=== PATIENT | male | born 1950 | race Caucasian/White ===

== ENCOUNTER 2017-08-27 07:56 | Emergency (ER) | payer OTHER ==
--- NOTE | 2017-08-27 08:11 | CPEKG ---
Heart Rate: 65 RR Interval: 923 P-R Interval: 168 QRSD Interval: 96 QT Interval: 468 QTC Interval: 487 P [place]: 61 QRS [place]: 8 T Wave [place]: 255 EKG Severity - ABNORMAL ECG - EKG Impression: SINUS RHYTHM EKG Impression: MULTIPLE ATRIAL PREMATURE COMPLEXES EKG Impression: BORDERLINE PROLONGED QT INTERVAL Electronically Signed By: Santi Brewer 29-Aug-2017 12:46:41
--- NOTE | 2017-08-27 08:16 | EDPHY ---
HPI/HX/ROS/PE/MDM Narrative: CHIEF COMPLAINT: Chest pain HPI: This patient is a 67 y/o male complaining of chest pain. He woke with discomfort which he describes as "chest pain" that he feels deep inside his left shoulder blade from the back. His discomfort is persistent and dull and has not changed since onset. He denies any sharp pains. No radiation. The patient has had similar pains over the last several months. These usually resolve within 5 minutes with deep breathing. Today, the pain has not resolved so he presents fo revaluation. He believes his similar pains have been of cardiac etiology, but he has not followed up with a reporting developer regarding these symptoms. A stress test "decades ago" was negative. The patient denies any recent unusual activities. He exercised on Friday, three days ago, as usual and had no chest pain or shortness of breath during his activities. The patient reports occasional swelling in his legs. He denies history of hypertension, diabetes, or hyperlipidemia. He is a nonsmoker. No family history of cardiac disease. No fever, shortness of breath, or other associated symptoms. REVIEW OF SYSTEMS: Aside from elements discussed in the HPI, a comprehensive 10-point review of systems was reviewed and is negative. 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 No HTN or connective tissue disorder. 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 Lives in [place]. PHYSICAL EXAM: General:Patient is alert, in no acute distress. ENT:Eyes are normal to inspection. ENT inspection normal. Neck: Normal inspection. Full range of motion. Respiratory:No respiratory distress. Breath sounds normal bilaterally. Cardiovascular: Regular rate and rhythm. Strong peripheral pulses. Normal cap refill. Abdomen:The abdomen is nontender to palpation. There are no peritoneal signs. There are normal bowel sounds. Back: Normal to inspection. No tenderness to palpation. Skin: Normal color. No rash. Warm and dry. Extremities: Trace pedal edema bilaterally. Full range of motion. Neuro: Oriented x3. Normal motor function. Normal sensory function. ED Course: 67 y/o male presents with left upper back pain which he describes as chest pain. Plan to administer 325mg PO Aspirin. Plan for EKG, chest x-ray, labs including CBC, chemistries, troponin, D-dimer. EKG was ordered and interpreted by myself. Please see [facility] system for official reading. Sinus rhythm, multiple PACs. Chest x-ray negative for pneumonia. Evidence of mild airways disease. No other acute processes noted. Laboratory studies unremarkable. Troponin and D-dimer negative. 09:45 I discussed results with patient. Plan to discharge home in good condition. He will follow up with cardiology for further evaluation. Return precautions discussed. He is comfortable with this plan. MDM: This patient essentially presents with back pain that he is describing as chest pain. His HEART score is extremely low and there is no evidence of ACS. I considered TAD but the patient has a negative d-dimer and no risk factors for this disease. I think he is safe for outpatient workup and he agrees. We discussed strict return precautions. - Data Points Imaging Results: Imaging Impressions Chest X-Ray 08/27/17 08:17 Impression: Mild airways disease, which could be infectious or inflammatory. No discrete pneumonia. Imaging: I viewed and interpreted images myself Laboratory Results: Laboratory Results 08/27/17 08:15 08/27/17 08:15 08/27/17 08/27/17 08/27/17 08:15 08:15 08:15 WBC 5.04 10^3/uL 10^3/uL (3.80-9.50) RBC 5.35 10^6/uL 10^6/uL (4.40-6.38) Hgb 17.0 g/dL g/dL (13.7-17.5) Hct 48.7 % % (40.0-51.0) MCV 91.0 fL fL (81.5-99.8) MCH 31.8 pg pg (27.9-34.1) MCHC 34.9 g/dL g/dL (32.4-36.7) RDW 13.2 % % (11.5-15.2) Plt Count 185 10^3/uL 10^3/uL (150-400) MPV 10.0 fL fL (8.7-11.7) Neut % (Auto) 50.4 % % (39.3-74.2) Lymph % (Auto) 31.3 % % (15.0-45.0) Ogle % (Auto) 14.5 % H % (4.5-13.0) Eos % (Auto) 2.0 % % (0.6-7.6) Baso % (Auto) 1.4 % % (0.3-1.7) Nucleat RBC Rel Count 0.0 % % (0.0-0.2) Absolute Neuts (auto) 2.54 10^3/uL 10^3/uL (1.70-6.50) Absolute Lymphs (auto) 1.58 10^3/uL 10^3/uL (1.00-3.00) Absolute Monos (auto) 0.73 10^3/uL 10^3/uL (0.30-0.80) Absolute Eos (auto) 0.10 10^3/uL 10^3/uL (0.03-0.40) Absolute Basos (auto) 0.07 10^3/uL 10^3/uL (0.02-0.10) Absolute Nucleated RBC 0.00 10^3/uL 10^3/uL (0-0.01) Immature Gran % 0.4 % % (0.0-1.1) Immature Gran # 0.02 10^3/uL 10^3/uL (0.00-0.10) D-Dimer 0.31 ug/mLFEU ug/mLFEU (0.00-0.50) Sodium 143 mEq/L mEq/L (135-145) Potassium 4.0 mEq/L mEq/L (3.5-5.2) Chloride 109 mEq/L mEq/L (97-110) Carbon Dioxide 23 mEq/l mEq/l (22-31) Anion Gap 11 mEq/L mEq/L (8-16) BUN 20 mg/dL mg/dL (7-23) Creatinine 0.8 mg/dL mg/dL (0.7-1.3) Estimated GFR > 60 Glucose 92 mg/dL mg/dL (70-100) Calcium 8.9 mg/dL mg/dL (8.5-10.4) Troponin I < 0.012 ng/mL ng/mL (0.000-0.034) Medications Given: Discontinued Medications Aspirin (Aspirin) 324 mg PO EDNOW ONE Stop: 08/27/17 08:18 Last Admin: 08/27/17 08:20 Dose: 324 mg General Time Seen by Provider: 08/27/17 08:10 Initial Vital Signs: Initial Vital Signs Temperature (C) 36.3 C 08/27/17 08:03 Heart Rate 66 08/27/17 08:03 Respiratory Rate 20 08/27/17 08:03 Blood Pressure 141/79 H 08/27/17 08:03 O2 Sat (%) 92 08/27/17 08:03 O2 Delivery Mode Room Air Allergies/Adverse Reactions: amoxicillin Allergy (Verified 08/27/17 08:02) erythromycin base Allergy (Verified 08/27/17 08:02) Home Medications: Medication Instructions Recorded NK [No Known Home Meds] 08/27/17 Departure - Departure Disposition: Home, Routine, Self-Care Clinical Impression: Back pain Condition: Good Instructions: Chest Pain (ED), Back Pain (ED) Additional Instructions: Follow-up with your primary doctor within 2-3 days. Follow up with a reporting developer for further testing, as soon as possible, within one week. We have referred you to our reporting developer shop and alteration tailor. Return to the Emergency Department for fever, chest pain, shortness of breath, increasing pain or other worsening of condition. Referrals: Titi Zhou DO [Primary Care Provider] - As per Instructions Romeo Drake MD [Medical Doctor] - As per Instructions Report Scribed for: Prabhu Sadler Report Scribed by: Dominique Pérez Date of Report: 08/27/17 Time of Report: 08:57 Physician Review and Approval Statement: Portions of this note were transcribed by an ED scribe. I personally performed the history, physical exam, and medical decision making; and confirm the accuracy of the information in the transcribed note.
[2017-08-27] MEDS ORDERED: ASPIRIN 81 MG CHEWABLE TAB PO ONE (08:17)
[2017-08-27 08:25] LABS: PLATELET COUNT 185 10^3/uL (150-400)
[2017-08-27 10:21] VITALS: BP 110/84
== END 2017-08-27 10:21 | disposition home or self-care (01) ==
DX: M54.9 Dorsalgia, unspecified (principal)

== ENCOUNTER → 2018-10-14 | Outpatient (CLI) | payer OTHER | LOC: FIMAGING 18:59 | PROVIDERS: ATTEND Clinical Nurse Specialist Adult Health | DX: R05 Cough (principal) ==